=== PATIENT | male | born 1995 | race African-American/Black ===

== ENCOUNTER 2021-03-02 16:37 | Outpatient (REF) | payer OTHER, SELFPAY ==
--- NOTE | ~2021-03-02 | XR_ITS ---
EXAMINATION: XR HAND, LEFT CLINICAL INFORMATION: Left finger cellulitis. COMPARISON: Left hand radiographs dated 02/26/2015. TECHNIQUE: PA, lateral, and oblique views of the left hand. FINDINGS: There is a 0.1 cm density within the soft tissues distal to the 3rd distal phalanx, which could represent a tiny calcification versus radiopaque foreign body. Mild soft tissue swelling. No adjacent osseous abnormality. No osseous erosion or periosteal reaction. No fracture or dislocation. Normal carpal alignment. XR/XR hand LT min 3V IMPRESSION: Radiopaque density measuring 0.1 cm within the soft tissues distal to the 3rd phalanx with associated soft tissue swelling. Findings could represent a tiny calcification versus radiopaque foreign body. No acute osseous abnormality.
== END 2021-03-02 16:38 | disposition home or self-care (01) ==
LOC: HO.XRAY 16:37
PROVIDERS: Absent Provider Internal Medicine; PCP Internal Medicine; Visit Provider Internal Medicine
DX: L03.012 Cellulitis of left finger (principal)
CPT/HCPCS: 73130

== ENCOUNTER 2021-05-25 10:43 | Emergency (ER) | payer OTHER, SELFPAY ==
--- NOTE | ~2021-05-25 | XR_ITS ---
EXAMINATION: XR CHEST CLINICAL INFORMATION: COVID, Cough COMPARISON: Chest radiographs 01/09/2020, 12/02/2019 TECHNIQUE: Frontal view of the chest was obtained. FINDINGS: There are subtle scattered bilateral predominantly subpleural groundglass opacities. There is no confluent lobar or segmental airspace consolidation or effusion. The costophrenic sulci are clear. The heart is normal in size. The vascularity is normal. XR/XR chest 1V IMPRESSION: Scattered bilateral subtle groundglass opacities upper and lower zones which may be associated with atypical/viral/Covid pneumonia.
[2021-05-25 12:10] VITALS: BP 131/85; PULSE 97; RESP 18; TEMP 36.9; O2SAT 97; BMI 37.6
--- NOTE | 2021-05-25 13:13 | ED.URI ---
HPI - URI/Sore Throat General Chief Complaint: Dizziness Stated Complaint: +COVID,SOB,CP,-VACCINE Time Seen by Provider: 05/25/21 12:57 Source: patient Mode of arrival: ambulatory Limitations: no limitations History of Present Illness HPI Narrative: 25-year-old male presents emergency department and vaccinated COVID with COVID-19. He states he has lots of mucus and has not felt comfortable. He last took anything for it last night he took ibuprofen. He states he was hoping he feeling better and wants something for his mucus. Patient has completely normal vitals on arrival he denies any falls or injuries. Related Data Previous Rx's Medication Instructions Recorded benzonatate 100 mg capsule 100 mg PO BID PRN #30 cap 05/25/21 Allergies Allergy/AdvReac Type Severity Reaction Status Date / Time No Known Allergies Allergy Verified 05/25/21 12:10 Review of Systems Review of Systems: Review of systems: General: Patient denies any fever chills recent illness or falls Musculoskeletal: Denies back pain or body aches or other injuries HEENT: denies headache, runny nose, ear pain Respiratory: denies shortness of breath, cough Cardiovascular: no chest pain or palpitations : denies dysuria, frequency Abdomen: no nausea vomiting denies abdominal pain Extremities: no swelling, no pain Skin: no diaphoresis Yes all other systems are reviewed and are negative PMFSH Social History Social History Advance Directives: No Physical Exam Vital Signs: Vital Signs: Last Vital Signs Temp 98.5 F 05/25/21 12:10 Pulse 97 05/25/21 12:10 Resp 18 05/25/21 12:10 BP 131/85 05/25/21 12:10 Pulse Ox 97 05/25/21 12:10 BMI result Body Mass Index 37.6 General: Well-appearing well-nourished in no signs of distress HEENT: Normocephalic atraumatic Neck: No signs of JVD, no masses no tenderness or lymphadenopathy Cardiovascular: Regular rate and rhythm Respiratory: Clear to auscultation bilaterally Abdomen: Soft nontender no masses rectal exam performed guia negative quality control assessor confirmed. Extremities: Normal pedal pulses no signs of edema Skin: Dry warm no rashes Back: No tenderness full ROM MDM - URI/Sore Throat MDM Narrative Medical decision making narrative: Patient looks well I will send home with Mg Atkins who patient dose of Tylenol and Toradol feel patient is safe to go home. Discharge Plan Discharge Clinical Impression: COVID-19 Patient Disposition: Home, Self-Care Instructions: COVID-19 (Coronavirus Disease 2019) (ED) Additional Instructions: Please call follow-up with your doctor you need to get vaccinated and 80 days it is only things improved to be helpful to rinse for disease COVID-19. He try the Mg Atkins Tylenol ibuprofen if you have any other concerns please do not hesitate to come back to the emergency department. Prescriptions: New benzonatate 100 mg capsule 100 mg PO BID PRN (Reason: cough) Qty: 30 RF: 0
[2021-05-25] MEDS: Acetaminophen 325 MG TABLET 650 MG PO (13:47)
[2021-05-25] MEDS: Ketorolac Tromethamine 30 MG/ML VIAL 15 MG IM (13:48)
== END 2021-05-25 15:01 | disposition home or self-care (01) ==
PROVIDERS: Emergency Provider Student in an Organized Health Care Education/Training Program; PCP Internal Medicine
DX: U07.1 COVID-19 (principal); J12.82 Pneumonia due to coronavirus disease 2019; R06.02 Shortness of breath
CPT/HCPCS: 71045; 96372; 96374; 99283; 99284; J1885

== ENCOUNTER → 2022-12-01 13:32 | Outpatient (BNVA) | payer OTHER, SELFPAY | PROVIDERS: PCP Internal Medicine; Visit Provider Physician Assistant | DX: S60.212A Contusion of left wrist, initial encounter (principal); X50.3XXA Overexertion from repetitive movements, initial encounter | CPT/HCPCS: 29125; 99204 ==

== ENCOUNTER → 2022-12-06 13:00 | Outpatient (BNVA) | payer OTHER, SELFPAY | PROVIDERS: PCP Internal Medicine; Visit Provider Physician Assistant Medical | DX: S60.212A Contusion of left wrist, initial encounter (principal); X50.0XXA Overexertion from strenuous movement or load, initial encounter | CPT/HCPCS: 99213 ==

== ENCOUNTER → 2022-12-13 13:15 | Outpatient (BNVA) | payer OTHER, SELFPAY | PROVIDERS: Visit Provider Physician Assistant Medical | DX: S60.212A Contusion of left wrist, initial encounter (principal); X50.3XXA Overexertion from repetitive movements, initial encounter | CPT/HCPCS: 99213 ==

== ENCOUNTER 2022-12-21 15:00 | Outpatient (RCR) | payer OTHER, SELFPAY ==
--- NOTE | 2022-12-21 15:30 | MHC.OT.DC ---
[address] [phone] F: [phone] Occupational Therapy Discharge Note Patient Name: Kurt Moore Provider: Sheila Vines Diagnosis: Left wrist crushstrain/crush Date of Surgery: Date of Evaluation: 12/08/22 Date of Discharge: 12/21/22 Treatments to Date: 3 Cancellations to Date: 0 No Shows to Date: 0 Discharge Status: Achieved Goals Improved Function Independent with HEP Discharge Summary: Pt painfree. ROM WNL . Pt lifting up to 40 lb without difficulty. 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 25 at 2 stops with a 3-[address]/rest.. [place] strength WNL . I anticipate patient to return to full duty without difficulty. Electronically Signed By: Brianne Ayala OT CHT CLT Reviewed/agree with student documentation: Therapist: Please Sign and return to therapist, thank you for your referral.
== END 2022-12-21 15:31 | disposition home or self-care (01) ==
LOC: HO.OT 15:00
PROVIDERS: Visit Provider Physician Assistant Medical
DX: S60.212D Contusion of left wrist, subsequent encounter (principal)
CPT/HCPCS: 97110; 97165; 97530

== ENCOUNTER → 2023-01-02 14:32 | Outpatient (BNVA) | payer OTHER, SELFPAY | PROVIDERS: Visit Provider Physician Assistant Medical | DX: S60.212D Contusion of left wrist, subsequent encounter (principal); X50.3XXD Overexertion from repetitive movements, subsequent encounter | CPT/HCPCS: 99213 ==

== ENCOUNTER 2025-04-24 12:34 | Emergency (ER) | payer OTHER, SELFPAY ==
[2025-04-24 13:24] VITALS: BP 132/92; PULSE 91; RESP 18; TEMP 36.1; O2SAT 96; BMI 40.8
--- NOTE | 2025-04-24 13:29 | ED.GENADULT ---
HPI - General Adult General Chief complaint: Upper Respiratory Symptoms Stated complaint: Fever Body Aches History of Present Illness HPI narrative: Patient left before completion of treatment by ED provider. Related Data Previous Rx's ?Medication ?Instructions ?Recorded benzonatate 100 mg capsule 100 mg PO BID PRN cough #30 caps 05/25/21 Allergies Allergy/AdvReac Type Severity Reaction Status Date / Time No Known Allergies Allergy Verified 04/24/25 13:28 PMFSH Social History Social History Advance Directives: No Advance Directives Information Provided: No Physical Exam ED Vital Signs: BMI result Body Mass Index 40.8 Course Course Course Narrative: RME; 29 year male presents to ED for URI symptoms. Patient states daughter tested positive for COVID. Swabs x-ray ordered Discharge Plan Discharge Clinical Impression: Upper respiratory infection Patient Disposition: Left W/O Completing Treatment Prescriptions: No Action benzonatate 100 mg capsule 100 mg PO BID PRN (Reason: cough) Qty: 30 0RF Discharge Date/Time: 04/24/25 16:03
== END 2025-04-24 16:03 | disposition left against medical advice (07) ==
LOC: HO.ED 15:43
PROVIDERS: Emergency Provider Emergency Medicine
DX: J06.9 Acute upper respiratory infection, unspecified (principal); Z53.29 Procedure and treatment not carried out because of patient's decision for other reasons
CPT/HCPCS: 99281